=== PATIENT | female | born 2000 | race Caucasian/White ===

== ENCOUNTER 2024-03-27 22:19 | Emergency (ER) | payer OTHER ==
--- OUTSIDE RECORDS SUMMARY | 2024-03-27 22:21 | XMS REPORT | Continuity of Care Document ---
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 - 00:00: 00 [facility] Tic Tic Problem Active 03-18 00:00: 00 [facility] Dysmenorrh ea Dysmenorrh ea Problem Active 03-18 00:00: 00 [facility] Menorrhagi a Menorrhagi a Problem Active 0 -16 00:00: 00 [facility] Irregular periods Irregular Periods Problem Active 0 -16 00:00: 00 [facility] Female hirsutism Female Hirsutism Problem Active 03-18 00:00: 00 [facility] Abnormal weight gain Abnormal Weight Gain Problem Active 16 00:00: 00 [facility] Social History Smoking Status Start Date Stop Date Source Never Smoker [facility] Medications Ordered Medication Name Filled Medication Name Start Date Stop Date Current Medication? Ordering Clinician Indication Dosage Frequency Signature (SIG) Comments Components Source guanfacine ER 4 mg tablet,exte nded release 24 hr Take by oral route. guanfacine ER 4 mg tablet,exte nded release 24 hr Take by oral route. No guanfacine ER 4 mg tablet,ext ended release 24 hr Take by oral route. [facility] methylpheni date 54mg methylpheni date 54mg No methylphen idate 54mg [facility] Sprintec (28) 0.25 mg-35 mcg tablet Take 1 tablet every day by oral route as directed for 28 days. Sprintec (28) 0.25 mg-35 mcg tablet Take 1 tablet every day by oral route as directed for 28 days. No 1 Q1D Sprintec (28) 0.25 mg-35 mcg tablet Take 1 tablet every day by oral route as directed for 28 days. [facility] Vital Signs Vital Name Observation Time Observation Value Comments S ource BMI (Body Mass Index) 2024-03-18 00:00:00 34.1 kg/m2 [facility] Height 2024-03-18 00:00:00 67 [in_i] [facility] BP Diastolic 2024-03-18 00:00:00 80 mm[Hg] [facility] Body Weight 2024-03-18 00:00:00 217.6 [lb_av] [facility] BP Systolic 2024-03-18 00:00:00 121 mm[Hg] [facility] ia Medical Encounters Start Date/Time End Date/Time Encounter Type Admission Type Attending Clinicians Care Facility Care Department Encounter ID Source 2024-03-18 00:00:00 2024-03-18 00:00:00 LUCAS BeckP: [address], [address], [place] [address] , Ph. [facility] - GC_GCBZW_Annie [facility]* [id number] [facility]
--- NOTE | 2024-03-27 22:26 | EDPHYS ---
Physician Documentation [facility] Name: Perla Hatch Age: 23 yrs Sex: Female : 2000 Arrival Date: 03/27/2024 Time: 22:19 Bed IW1 Private MD: ED Physician Hemal Ordaz HPI: 03/27 22:35 This 23 yrs old Female presents to ER via Ambulatory with complaints of Dog Bite. kb 22:35 Patient is a 23-year-old female who presents for a dog bite to right wrist that kb occurred just prior to arrival. States her roommates dog bit her. PD was on scene and did a report. Patient states EMS was on scene as well and told her she needed to come in for shots.. Historical: - Allergies: 22:27 No Known Allergies; cm10 - Home Meds: 22:27 None [Active]; cm10 - PMHx: 22:27 None; cm10 - PSHx: 22:27 None; cm10 - Immunization history:: Adult Immunizations up to date, Last tetanus immunization: unknown. - Infectious Disease History:: Denies. - Social history:: Smoking status: Patient denies any tobacco usage or history of. ROS: 22:35 Constitutional: As per HPI kb Exam: 22:35 Constitutional: This is a well developed, well nourished patient who is awake, alert, kb and in no acute distress. Head/Face: Normocephalic, atraumatic. ENT: Moist Mucous membranes Cardiovascular: Regular rate Respiratory: Respirations even and unlabored. No increased work of breathing. Talking in full sentences Abdomen/GI: Soft, non-tender. No distention MS/ Extremity: Pulses equal, no cyanosis. Neurovascular intact. Full, normal range of motion. Neuro: Awake and alert, GCS 15, oriented to person, place, time, and situation. Moves all extremities. Normal gait. 22:35 Skin: injury, puncture(s), that are superficial, of the palmar aspect of right wrist, Vital Signs: 22:25 BP 136 / 91; Pulse 72; Resp 18; Temp 98; Pulse Ox 97% ; Weight 86.18 kg; Height 5 ft. 7 cm10 in. ; Pain 3/10; 22:25 Body Mass Index 29.76 (86.18 kg, 170.18 cm) cm10 22:25 Pain Scale: Adult cm10 MDM: 22:21 Patient medically screened. kb 22:35 Differential diagnosis: superficial laceration, Dog bite. Data reviewed: vital signs, kb nurses notes. Test considered but Not performed: X-ray: X-ray of the wrist considered the patient has full range of motion and no bony tenderness. Counseling: I had a detailed discussion with the patient and/or guardian regarding the historical points, exam findings, and any diagnostic results supporting the discharge/admit diagnosis, the need for outpatient follow up, a family practitioner, to return to the emergency department if symptoms worsen or persist or if there are any questions or concerns that arise at home. Administered Medications: 22:34 Drug: Boostrix Tdap IM 0.5 ml IM once; as a single dose Route: IM; Site: left deltoid; cm10 22:35 Follow up: Response: No adverse reaction cm10 22:34 Drug: Amoxicillin-Clavulanate PO 875 mg PO once Route: PO; cm10 22:35 Follow up: Response: No adverse reaction cm10 Disposition Summary: 03/27/24 22:25 Discharge Ordered Notes: Location: Home kb Condition: Stable kb Diagnosis - Bitten by dog kb Followup: kb - With: Emergency Department - When: As needed - Reason: Worsening of condition Followup: kb - With: Private Physician - When: 2 - 3 days - Reason: Recheck today's complaints, Continuance of care, Re-evaluation by your physician Discharge Instructions: - Discharge Summary Sheet kb - Animal Bite, Adult, [id number] kb Forms: - Medication Reconciliation Form kb - Antibiotic Education kb - Prescription Opioid Use kb - Patient Portal Instructions kb - Leadership Thank You Letter kb Prescriptions: - Augmentin 875-125 mg Oral Tablet - take 1 tablet ORAL route every 12 hours for 10 days; 20 tablet; Refills: 0, kb Product Selection Permitted Addendum: 03/29/2024 01:17 I was immediately available for consultation during this patient's visit. I did not e c2 personally see the patient or discuss the patient with the MAUREEN. . Signatures: Tiarra Bhakta, Ele Figueroa RN RN cm10 Hemal Ordaz MD MD ec2
[2024-03-27] MEDS ORDERED: TDAP (DIPHTH,PERTUSS(ACELL),TET VAC) 0.5 ML VIAL IMVAC ONE (22:29)
[2024-03-27] MEDS ORDERED: AMOX/K CLAV 875 MG TAB ONE (22:29)
--- NOTE | 2024-03-27 22:37 | ER ---
Nurse's Notes [facility] Name: Perla Hatch Age: 23 yrs Sex: Female : 2000 Arrival Date: 03/27/2024 Time: 22:19 Bed IW1 Private MD: Diagnosis: Bitten by dog Presentation: 03/27 22:25 Chief complaint: Patient states: Bit by her roommates dog on her right wrist. [facility] PD on scene case #[id number]. Coronavirus screen: Client denies travel out of the [place] in the last 14 days. At this time, the client does not indicate any symptoms associated with coronavirus-19. Ebola Screen: Patient denies travel to an Ebola-affected area in the 21 days before illness onset. No symptoms or risks identified at this time. Initial Sepsis Screen: Does the patient meet any 2 criteria? No. Patient's initial sepsis screen is negative. Does the patient have a suspected source of infection? No. Patient's initial sepsis screen is negative. Risk Assessment: Do you want to hurt yourself or someone else? Patient reports no desire to harm self or others. Onset of symptoms was March 27, 2024. 22:25 Method Of Arrival: Ambulatory cm10 22:25 Acuity: LEANDER 4 cm10 Triage Assessment: 22:35 Bite description: bite sustained to palmar aspect of right wrist by a dog, animal cm10 information: vaccination(s) is unknown. General: Appears in no apparent distress. comfortable, Behavior is calm, cooperative. Pain: Complains of pain in palmar aspect of right wrist. Neuro: No deficits noted. Level of Consciousness is awake, alert, Oriented to person, place, time, situation, Appropriate for age. Respiratory: No deficits noted. Airway is patent Respiratory effort is even, unlabored, Respiratory pattern is regular, symmetrical. Musculoskeletal: No deficits noted. Range of motion: intact in all extremities. Historical: - Allergies: 22:27 No Known Allergies; cm10 - Home Meds: 22:27 None [Active]; cm10 - PMHx: 22:27 None; cm10 - PSHx: 22:27 None; cm10 - Immunization history:: Adult Immunizations up to date, Last tetanus immunization: unknown. - Infectious Disease History:: Denies. - Social history:: Smoking status: Patient denies any tobacco usage or history of. Screenin:36 [facility] ED Fall Risk Assessment (Adult) History of falling in the last 3 months, cm10 including since admission No falls in past 3 months (0 pts) Confusion or Disorientation No (0 pts) Intoxicated or Sedated No (0 pts) Impaired Gait No (0 pts) Mobility Assist Device Used No (0 pt) Altered Elimination No (0 pt) Score/Fall Risk Level 0 - 2 = Low Risk Oriented to surroundings, Maintained a safe environment, Hourly rounding (assess needs \T\ fall precautionary measures) done. Abuse screen: Denies threats or abuse. Denies injuries from another. Nutritional screening: No deficits noted. Tuberculosis screening: No symptoms or risk factors identified. Assessment: 22:37 Derm: Skin is healthy with good turgor, Skin is pink, warm \T\ dry. cm10 Vital Signs: 22:25 BP 136 / 91; Pulse 72; Resp 18; Temp 98; Pulse Ox 97% ; Weight 86.18 kg; Height 5 ft. 7 cm10 in. ; Pain 3/10; 22:25 Body Mass Index 29.76 (86.18 kg, 170.18 cm) cm10 22:25 Pain Scale: Adult cm10 ED Course: 22:20 Patient arrived in ED. mr 22:21 Hemal Ordaz MD is Attending Physician. ec2 22:21 Tiarra Bhakta FNP-C is PHCP. kb 22:27 Triage completed. cm10 22:27 Arm band placed on Patient placed in an exam room, on a stretcher. cm10 22:36 Patient has correct armband on for positive identification. Provided Education on: cm10 Follow-up instructions. 22:36 No provider procedures requiring assistance completed. Patient did not have IV access cm10 during this emergency room visit. Administered Medications: 22:34 Drug: Boostrix Tdap IM 0.5 ml IM once; as a single dose Route: IM; Site: left deltoid; cm10 22:35 Follow up: Response: No adverse reaction cm10 22:34 Drug: Amoxicillin-Clavulanate PO 875 mg PO once Route: PO; cm10 22:35 Follow up: Response: No adverse reaction cm10 Medication: 22:36 Vaccine Information Statement (VIS) provided today. Questions and/or concerns cm10 addressed. VIS edition date: June 10, 2021. Outcome: 22:25 Discharge ordered by . kb 22:36 Discharged to home ambulatory, cm10 22:36 Condition: good 22:36 Discharge instructions given to patient, Instructed on discharge instructions, follow up and referral plans. Demonstrated understanding of instructions, follow-up care, medications, Prescriptions given X 1, 22:37 Patient left the ED. cm10 Signatures: Tiarra Bhakta, AUTOMATIC LEHR OPERATOR-C AUTOMATIC LEHR OPERATOR-Ckb Diana Phelps, Reg Reg Ele Carolina, RN RN cm10 Hemal Ordaz MD MD ec2
[2024-03-27 23:29] VITALS: BP 136/91; TEMP 98; O2SAT 97
== END 2024-03-27 22:37 | disposition home or self-care (01) ==
LOC: ER 22:19
DX: S61.531A Puncture wound without foreign body of right wrist, initial encounter (principal); W54.0XXA Bitten by dog, initial encounter
CPT/HCPCS: 96372; 99284